=== PATIENT | male | born 1965 | race Caucasian/White ===

== ENCOUNTER → 2016-09-21 | Outpatient (CLI) | payer BC ==
--- NOTE | 2016-09-24 07:19 | SLEEPCENT ---
DATE OF PROCEDURE: 09/21/2016 ORDERED BY: MEE Powers Nocturnal polysomnography was performed for evaluation of sleep apnea syndrome symptoms in this patient with a history of excessive somnolence and comorbidities of hypertension. 8 hours and 33 minutes of data were reviewed. There were 427 minutes of sleep identified. Sleep latency was prolonged at 41 minutes. Rapid eye movement (REM) latency was prolonged at 173 minutes. Sleep architecture showed fragmentation. There were 3 REM periods appreciated. Overall sleep efficiency was 84%. EKG showed a sinus rhythm with an average heart rate of 55 beats per minute. Rate variability was seen surrounding respiratory events. Rate ranged 45-75 beats per minute. EEG showed fairly normal waveforms for awake and sleep. There were 36 respiratory events identified of 10 seconds in duration or greater for an apnea hypopnea index of 5.1. The events were obstructive, more frequent but not exclusive to the supine posture. Arousals from respiratory events occurred 4.2 times per hour. Significant snoring was noted over the course of the study. Oxygen desaturations were seen on one occasion below 90%. There was minimal limb activity and remaining measures of sleep physiology were normal. IMPRESSION: Mild obstructive sleep apnea syndrome (G47.33). Apnea hypopnea index 5.1. RECOMMENDATION: Sleep position retraining for avoidance of the supine posture would seem reasonable. Should the patient's sleep symptoms persist, referral back to the sleep disorder center for pressure therapy is recommended.
== END ==
LOC: M SLEEP 19:37
PROVIDERS: ATTEND Nurse Practitioner Adult Health
DX: G47.30 Sleep apnea, unspecified (principal)

== ENCOUNTER → 2025-04-24 | Outpatient (CLI) | payer BC | LOC: M RAD 06:49 | PROVIDERS: ATTEND Internal Medicine | DX: R91.1 Solitary pulmonary nodule (principal); I71.23 Aneurysm of the descending thoracic aorta, without rupture; F17.210 Nicotine dependence, cigarettes, uncomplicated ==